=== PATIENT | male | born 1990 | race Caucasian/White ===

== ENCOUNTER 2020-01-14 22:32 | Emergency (ER) | payer OTHER ==
[~2020-01-14] VITALS: Ht 177.8 cm; Wt 80.7 kg
[~2020-01-14 22:32] MED LIST: CLINDAMYCIN300 M1 PO; LAC PO; NOR10T PO
[2020-01-14 22:38] VITALS: Ht 177.8 cm; Wt 80.7 kg
[2020-01-15 00:35] VITALS: BP 126/78
== END 2020-01-15 00:35 | disposition home or self-care (01) ==
LOC: ED 22:32
DX: S40.812A Abrasion of left upper arm, initial encounter (principal); S40.811A Abrasion of right upper arm, initial encounter; L03.114 Cellulitis of left upper limb; L03.113 Cellulitis of right upper limb; F15.10 Other stimulant abuse, uncomplicated; F11.10 Opioid abuse, uncomplicated; X58.XXXA Exposure to other specified factors, initial encounter; Y93.89 Activity, other specified; Y92.89 Other specified places as the place of occurrence of the external cause; Y99.8 Other external cause status